=== PATIENT | female | born 1985 | race Caucasian/White ===

== ENCOUNTER 2016-08-29 14:43 | Emergency (ER) | payer MEDICAID, OTHER ==
[~2016-08-29] VITALS: Ht 149.9 cm; Wt 58.3 kg
[~2016-08-29 14:43] MED LIST: HYDR-3288 PO; IBUP800T23 PO; LEXA10TA PO
[2016-08-29 14:57] VITALS: BP 107/71; PULSE 69; RESP 15; TEMP 98.2; O2SAT 99
--- NOTE | 2016-08-29 15:20 | PD ---
Data Data Last Documented VS Vital Signs Date Time Temp Pulse Resp B/P Pulse Ox O2 Delivery O2 Flow Rate FiO2 08/29/16 14:57 98.2 69 15 107/71 99 Orders Ed Poc Ultrasound (08/29/16 ) MDM Supervised Visit with MARIANN: Yes Differential Diagnosis I, Dr. Quinonez, have reviewed the advance practice practioner's documentation and am in agreement, met with the patient face to face, made the diagnosis, and the medical decision making was done by me. *My assessment and Findings: 30-year-old female here with complaint of right breast pain increasing over the course the last several days. Patient's proximally 2 months status post discontinuing breast-feeding. She notes redness from the superior aspect of the nipple. Exam is consistent with mastitis and possible abscess with small area of fluctuance and induration. Ultrasound was used to evaluate for abscess, which did confirm this, please see procedure note. Area was incised and drained and patient will be discharged home with antibiotics. Procedures Procedure Narrative Patient consented to bedside ultrasound: Linear probe was used on the superior aspect of the breast at approximately 12: 00 above the nipple at the area of the most induration and fluctuance revealing abscess. Karen Quinonez MD Aug 29, 2016 15:20
[2016-08-29] MEDS ORDERED: LIDOCAINE 1%/EPINEPHrine 1:100,000 SOLN 20 ML VIAL INFIL ONE (15:30)
[2016-08-29] MEDS ORDERED: BACT800T5 PO (15:45)
[2016-08-29] MEDS ORDERED: IBUP800T23 PO (15:45)
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
== END 2016-08-29 16:21 | disposition home or self-care (01) ==
LOC: PHEFT 14:43
DX: N61.1 Abscess of the breast and nipple (principal); B95.62 Methicillin resistant Staphylococcus aureus infection as the cause of diseases classified elsewhere
CPT/HCPCS: 10061; 86403; 87070; 87186; 87205

== ENCOUNTER 2016-09-01 19:35 | Emergency (ER) | payer MEDICAID ==
[~2016-09-01] VITALS: Ht 149.9 cm; Wt 68.0 kg
[~2016-09-01 19:35] MED LIST changes: +BACT800T5 PO
[2016-09-01 20:53] VITALS: BP 136/88; PULSE 96; RESP 18; TEMP 99.2; O2SAT 99
== END 2016-09-01 22:23 | disposition left against medical advice (07) ==
LOC: PHED 19:35
DX: Z53.21 Procedure and treatment not carried out due to patient leaving prior to being seen by health care provider (principal)
CPT/HCPCS: 99281

== ENCOUNTER 2016-12-07 05:40 | Emergency (ER) | payer MEDICAID ==
[~2016-12-07] VITALS: Ht 157.5 cm; Wt 68.0 kg
[2016-12-07] VITALS (7 sets, daily range): BP systolic 100–111; BP diastolic 76; PULSE 144–165; RESP 32; TEMP 98.6; O2SAT 0–97
[2016-12-07] MEDS ORDERED: ETOMIDATE 20 MG/10 ML VIAL ONE (06:04)
[2016-12-07] MEDS ORDERED: SODIUM BICARBONATE 8.4% INJ 50 MEQ/50 ML SYR ONE (06:15)
[2016-12-07] MEDS ORDERED: SODIUM BICARBONATE 8.4% INJ 50 ML ONE ×2 (06:18→08:53)
[2016-12-07 06:45] LABS: BLOOD GAS HCO3 4 mmol/L (22-26); BLOOD GAS METHEMOGLOBIN 0.6 % (0-2); BLOOD GAS O2 HGB SATURATION 98 % (90-100); BLOOD GAS OXYGEN CONTENT 23.3 Vol % (12.0-20.0); BLOOD GAS PCO2 14 mmHg (38-42); BLOOD GAS PO2 208 mmHG (61-120); BLOOD GAS TOTAL HGB 16.8 G/DL (12.0-16.0); TEMP CORR TO 98.6
[2016-12-07 06:46] LABS: CRITICAL VALUE YES; DRAW SITE RT BRACHIAL; FIO2 100 %; LITER FLOW 15 L/M; NUMBER OF ARTERIAL PUNCTURES 1; OXYGEN DEVICE NRB; STAT YES
[2016-12-07 06:58] LABS: I-STAT POTASSIUM 2.6 MMOL/L (3.5-4.9)
[2016-12-07] MEDS ORDERED: POTASSIUM PHOSPHATE INJ 30 MMOL in SODIUM CHLOR 0.9% 250 ML INJ 250 ML IV PRN (07:00)
[2016-12-07] MEDS ORDERED: RESP: ALBUTEROL 2.5 MG/IPRATROPIUM 0.5 MG NEB (PRN) INH (07:00)
[2016-12-07] MEDS ORDERED: POTASSIUM CHLOR 40 MEQ PREMIX 100 ML IV PRN ×2 (07:00)
[2016-12-07] MEDS ORDERED: SODIUM PHOSPHATE INJ 30 MMOL in SODIUM CHLOR 0.9% 250 ML INJ 240 ML IV PRN (07:00)
[2016-12-07] MEDS ORDERED: MAGNESIUM OXIDE 400 MG TAB PO PRN (07:00)
[2016-12-07] MEDS ORDERED: POTASSIUM CHLOR 20 MEQ PREMIX 100 ML IV PRN ×2 (07:00)
[2016-12-07] MEDS ORDERED: POTASSIUM PHOSPHATE MONOBASIC 500 MG TAB PO/TUBE PRN (07:00)
[2016-12-07] MEDS ORDERED: MAGNESIUM SULFATE INJ 4 GM in SODIUM CHLORIDE 0.9% INJ 92 ML IV PRN (07:00)
[2016-12-07] MEDS ORDERED: MAGNESIUM SULFATE INJ 2 GM in SODIUM CHLORIDE 0.9% INJ 96 ML IV PRN (07:00)
[2016-12-07] MEDS ORDERED: POTASSIUM PHOSPHATE MONOBASIC 500 MG TAB PO PRN (07:00)
[2016-12-07 07:15] LABS: HEMATOCRIT 41.6 % (35.0-46.0); MEAN CELL VOLUME 92.2 FL (80.0-100.0); MEAN CORPUSCULAR HEMOGLOBIN 29.5 PG (27.0-34.0); PLATELET COUNT 108 TH/MM3 (150-450); RED BLOOD COUNT 4.51 MIL/MM3 (4.00-5.30); RED CELL DISTRIBUTION WIDTH 14.4 % (11.6-17.2); WHITE BLOOD COUNT 6.7 TH/MM3 (4.0-11.0)
[2016-12-07] MEDS ORDERED: PIPERACIL-TAZO 4.5 GM PREMIX 100 ML IV ONE (07:15)
[2016-12-07 07:18] LABS: HEMO FLAGS AUTO DIFF
[2016-12-07] MEDS ORDERED: MIDAZOLAM HCL 5 MG/ML VIAL (1 ML) ONE ×3 (07:25→10:00)
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
[2016-12-07] MEDS ORDERED: ROCURONIUM INJ 50 MG/5 ML VIAL ONE (07:26)
--- NOTE | 2016-12-07 07:31 | RADRPT ---
EXAM DATE/TIME: 12/07/2016 07:06 [place] COMPARISON: CHEST SINGLE AP, June 26, 2014, 12:24. INDICATIONS : ET tube placement, patient unresponsive. MEDICAL HISTORY : Unresponsive SURGICAL HISTORY : Unresponsive ENCOUNTER: Initial ACUITY: 1 day PAIN SCORE: Non-responsive. LOCATION: Bilateral chest FINDINGS: A single view of the chest demonstrates endotracheal tube tip about 1 cm above the josue. NG tube in the stomach head scattered subsegmental air space disease in both lungs. No effusion. No pneumothora x. Heart size upper limits normal. CONCLUSION: 1. Endotracheal tube tip about 1 cm above josue. NG tube in the stomach. Scattered subsegmental air space disease in both lungs. Remote right clavicle fracture. Brian Lara MD on December 07, 2016 at 7:28 Board Certified Radiologist. This report was verified electronically.
--- NOTE | 2016-12-07 07:31 | HHI.HP ---
HPI Service Critical Care Medicine Primary Care Physician No Primary Care Physician Admission Diagnosis Diagnosis: Chief Complaint: shortness of breath Travel History International Travel<30 Days: No Contact w/Intl Traveler <30 Da: No Traveled to Known Affected Are: No History of Present Illness This is a 31yF with a prior history of suicidal ideations and IVDA who presented with a few hour history of shortness of breath. She was initially unstable with a narrow complex tachycardia and was cardioverted by EMS. Upon arrival, she was mottled and in distress without iv access. in the ED, 2 IOs were started in the bilateral tibias and ivf resuscitation was started. She had an initial abg of 7.0/14/208 and was intubated for worsening respiratory failure and profound shock. Emergent right femoral triple lumen catheter was placed. I was called to the bedside by the ER physician for assistance in resuscitation. The patient was intubated when I arrived and additional history is unobtainable. I performed bedside critical care ultrasound which demonstrated very tachycardic, hyperdynamic biventricular function with a completely collapsed IVC, no wall motion abnormalities, and no pericardial effusion. Per the ED, there is no clinical history of fevers, chills. 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 per report, history of prior suicide attempts and IVDA. Past Surgical History unknown and unobtainable secondary to the clinical condition of the patient. Reported Medications unknown and unobtainable secondary to the clinical condition of the patient. per report, takes suboxone. Active Ordered Medications See MAR Family History unknown and unobtainable secondary to the clinical condition of the patient. Social History unknown and unobtainable secondary to the clinical condition of the patient. per report, h/o IVDA. Physical Exam Vital Signs Vital Signs Date Time Temp Pulse Resp B/P Pulse Ox O2 Delivery O2 Flow Rate FiO2 12/07/16 06:30 80 100 12/07/16 06:30 98.6 157 111/76 97 Ventilator 12/07/16 06:29 100 12/07/16 05:40 165 32 100/ 7/3/17 05:40 32 Room Air 12/07/16 05:40 165 32 Room Air Physical Exam gen: young female in severe distress. mottled. heent: perrl. mucous membranes dry neck: no jvd. trachea midline. intubated. chest: bilateral coarse rales. equal chest rise. cv: tachycardic rate, regular rhythm. appears sinus by tele. abd: soft, nontender, nondistended. no guarding. extr: bilateral IOs in place in tibias. mottled extremities. cool and clammy. poorly perfused. neuro: RASS -5. recently intubated. GCS 3. Laboratory Laboratory Tests Test 12/07/16 12/07/16 05:58 06:40 Blood Gas Puncture Site RT BRACHIAL Blood Gas Patient Temperature 98.6 Blood Gas HCO3 4 Blood Gas Base Excess -25.0 Blood Gas Oxygen Saturation 98 Arterial Blood pH 7.06 Arterial Blood Partial 14 Pressure CO2 Arterial Blood Partial 208 Pressure O2 Arterial Blood Oxygen Content 23.3 Arterial Blood 0.0 Carboxyhemoglobin Arterial Blood Methemoglobin 0.6 Blood Gas Hemoglobin 16.8 Oxygen Delivery Device NRB Blood Gas Liter Flow 15 Blood Gas Inspired Oxygen 100 Bedside Hemoglobin 12.9 Bedside Hematocrit 38.0 Bedside Sodium 150 Bedside Potassium 2.6 Bedside Chloride 109 Bedside Blood Urea Nitrogen 22 Bedside Creatinine 1.2 Bedside Glucose 70 Date/Time Procedure Status Source Growth 12/07/16 06:44 Aerobic Blood Culture Received Blood Peripheral Pending 12/07/16 06:44 Anaerobic Blood Culture Received Blood Peripheral Pending Assessment and Plan Assessment and Plan Assessment: 31 year old female in profound shock and metabolic acidosis from an unknown cause. Clinically appears more septic. PE less likely given normal right ventricular size and function on bedside echo. unknown source of sepsis, but pulmonary would be a possible culprit given history of shortness of breath. will ivf resuscitate, start broad spectrum abx, await lab results. also drug overdose or toxic ingestion is a possibility given her past history. Active Problems: Acute encephalopathy, unknown type, toxic vs. metabolic Acute hypoxic and hypercarbic respiratory failure Severe metabolic acidosis Acute Kidney Injury Profound Shock, unknown type, likely distributive Plan: -- ct head, frequent neuro exam, propofol prn for sedation. -- ct chest/abd/pelvis to r/o PE and look for source of shock -- cbc, cmp, lactate, lipase -- tylenol and ASA levels, UDS, serum osms to calculate osmolar gap -- will need art line and sterile central line (femoral line placed unsterilely in emergent situation) -- 2L LR bolus -- vent bundle, hob at 30 degrees, nebs, wean fio2 for spo2 > 90%, no sbt today. -- may require vasopressors. -- longoria and q1h uop -- serial abg, lactate critical care time: 80 minutes, exclusive of separately billable procedures. I remained with the patient for ongoing resuscitation from the ER through CT scanner and to the ICU. Patient in extremis. Code Status Full Code Antonio Hernandez MD Dec 07, 2016 07:31
[2016-12-07 07:38] LABS: ACETAMINOPHEN 93.2 MCG/ML (10.0-30.0); ALKALINE PHOSPHATASE 229 U/L (45-117); ALT (GPT) 1610 U/L (10-53); ANION GAP 28 MEQ/L (5-15); AST (GOT) 339 U/L (15-37); BICARBONATE 10.1 MEQ/L (21.0-32.0); BLOOD UREA NITROGEN 25 MG/DL (7-18); CHLORIDE 113 MEQ/L (98-107); CREATINE KINASE 1582 U/L (26-192); GLOMERULAR FILTRATION RATE 39 ML/MIN (>89); MAGNESIUM 2.4 MG/DL (1.5-2.5); SODIUM (NA) 151 MEQ/L (136-145); TOTAL BILIRUBIN ADULT 3.8 MG/DL (0.2-1.0)
[2016-12-07 07:43] LABS: BANDS 12 % (0-6); CORRECTED NUCLEATED RBC 3 /100 WBC (0-0); NEUTROPHIL # MANUAL DIFF 5.4 TH/MM3 (1.8-7.7); POLYS (SEG NEUTROPHILS) 68 % (16-70); WBC DIFF SAMPLE 100
[2016-12-07 07:44] LABS: BURR CELLS 1+ (NORMAL); PLATELET ESTIMATE SMEAR LOW (NORMAL); PLATELET MORPHOLOGY NORMAL (NORMAL)
[2016-12-07 07:45] LABS: SCAN/DIFF FINAL DIFF MANUAL
[2016-12-07 07:48] LABS: BACTERIA, URINE RARE /hpf; BLOOD, URINE LARGE (NEG); COMMENT (UR) CULT NOT INDICATED; CULTURE IF INDICATED CULT NOT INDICATED; GLUCOSE,URINE NEG (NEG); HYALINE CAST, URINE 84 /lpf (RARE); KETONE, URINE TRACE mg/dL (NEG); MUCUS URINE FEW /lpf (OCC); NITRITE,URINE NEG (NEG); PH, URINE 5.5 (5.0-8.5); SQUAMOUS EPITHELIAL CELL URINE 3 /hpf (0-5)
[2016-12-07] MEDS ORDERED: IOHEXOL 350 MG/ML 10 ML VIAL (for RAD DIAG) IV ONE (07:48)
[2016-12-07 07:50] LABS: URINE COLOR RED (YELLW/STRAW)
[2016-12-07 07:55] LABS: AMPHETAMINE, URINE NEG (NEG); BARBITURATES, URINE NEG (NEG); COCAINE, URINE NEG (NEG)
--- NOTE | 2016-12-07 07:56 | RADRPT ---
EXAM DATE/TIME: 12/07/2016 07:38 [facility] COMPARISON: No previous studies available for comparison. INDICATIONS : Altered mental status. RADIATION DOSE: 56.35 CTDIvol (mGy) MEDICAL HISTORY : Hepatitis C. SURGICAL HISTORY : None. ENCOUNTER: Initial ACUITY: 1 day PAIN SCALE: Non-responsive LOCATION: cranial TECHNIQUE: Multiple contiguous axial images were obtained of the head. Using automated exposure control and adj ustment of the mA and/or kV according to patient size, radiation dose was kept as low as reasonably a chievable to obtain optimal diagnostic quality images. DICOM format image data is available electro nically for review and comparison. FINDINGS: CEREBRUM: The ventricles are normal for age. No evidence of midline shift, mass lesion, hemorrhage or acute in farction. No extra-axial fluid collections are seen. POSTERIOR FOSSA: The cerebellum and brainstem are intact. The 4th ventricle is midline. The cerebellopontine angle i s unremarkable. EXTRACRANIAL: The visualized portion of the orbits is intact. SKULL: The calvaria is intact. No evidence of skull fracture. CONCLUSION: Normal examination for a patient of this age. No significant change has occurred. Brian Lara MD on December 07, 2016 at 7:47 Board Certified Radiologist. This report was verified electronically.
[2016-12-07 07:57] LABS: CKMB 28.5 NG/ML (0.5-3.6)
[2016-12-07] MEDS ORDERED: DEXTROSE 5% IV ONE ×6 (08:00→13:00)
[2016-12-07] MEDS ORDERED: CHLORHEXIDINE 0.12% (ORAL KIT) 15 ML CUP MT SCH ×2 (08:00→20:00)
[2016-12-07] MEDS ORDERED: WATER IV ONE ×2 (08:00)
[2016-12-07] MEDS ORDERED: ACETYLCYSTEINE IV ONE ×6 (08:00→13:00)
--- NOTE | 2016-12-07 08:14 | RADRPT ---
EXAM DATE/TIME: 12/07/2016 07:44 [facility] COMPARISON: No previous studies available for comparison. INDICATIONS : Chest pain, shortness of breath. IV CONTRAST: 100 cc Omnipaque 350 (iohexol) IV ; Cumulative dose for multiple exams. RADIATION DOSE: 13.85 CTDIvol (mGy) MEDICAL HISTORY : Hepatitis C. SURGICAL HISTORY : Inguinal hernia repair. section.Tubal ligation. ENCOUNTER: Initial ACUITY: 1 day PAIN SCALE: Non-responsive LOCATION: Bilateral chest TECHNIQUE: Volumetric scanning of the chest was performed using a pulmonary embolism protocol MIP images were reconstructed. Using automated exposure control and adjustment of the mA and/or kV acco rding to patient size, radiation dose was kept as low as reasonably achievable to obtain optimal diag nostic quality images. DICOM format image data is available electronically for review and compariso n. FINDINGS: Patchy airspace disease is present in both lungs consistent with an inflammatory process. There is n o adenopathy. There are no central pulmonary emboli. There is no significant pleural effusion. The re is no pneumothorax. Contrasted injected Thre femoral central line. CONCLUSION: Negative for central pulmonary emboli Significant patchy airspace disease. Gatito Tsai MD FACR on December 07, 2016 at 8:08 Board Certified Radiologist. This report was verified electronically.
[2016-12-07 08:16] LABS: APTT (PATIENT) 106.6 SEC (24.3-30.1)
[2016-12-07 08:17] LABS: INTERNATIONAL NORMALIZED RATIO 6.2 RATIO
--- NOTE | 2016-12-07 08:18 | RADRPT ---
EXAM DATE/TIME: 12/07/2016 07:44 [facility] COMPARISON: No previous studies available for comparison. INDICATIONS : Shortness of breath, abdominal pain. IV CONTRAST: 100 cc Omnipaque 350 (iohexol) IV ; Cumulative dose for multiple exams. ORAL CONTRAST: No oral contrast ingested. RADIATION DOSE: 17.68 CTDIvol (mGy) MEDICAL HISTORY : Hepatitis C. SURGICAL HISTORY : Tubal ligation. Inguinal hernia repair. section. ENCOUNTER: Initial ACUITY: 1 day PAIN SCALE: Non-responsive LOCATION: Bilateral upper quadrant TECHNIQUE: Volumetric scanning of the abdomen and pelvis was performed. Using automated exposure control and ad justment of the mA and/or kV according to patient size, radiation dose was kept as low as reasonably achievable to obtain optimal diagnostic quality images. DICOM format image data is available electro nically for review and comparison. FINDINGS: Patchy airspace disease is seen in both lung spaces. The liver spleen pancreas unremarkable. The small amount of pericholecystic fluid present. There is minimal bowel wall thickening in both large and small bowel more so in the small bowel. Trace ascit es is evident. Femoral line is present. Degenerative changes are present in the lumbar spine. CONCLUSION: Patchy airspace disease in both lungs, most likely source of sepsis Gallbladder is abnormal with pericholecystic fluid without gallstones There is bowel wall thickening in large and small bowel. This can be seen with resuscitation. Gatito Tsai MD FACR on December 07, 2016 at 8:12 Board Certified Radiologist. This report was verified electronically.
[2016-12-07 08:19] LABS: POTASSIUM 2.7 MEQ/L (3.5-5.1)
[2016-12-07] MEDS ORDERED: Vancomycin Consult Pharmacy 1 EA OTHER SCH (08:30)
[2016-12-07] MEDS ORDERED: NOREPINEPHRINE-DEXTROSE DRIP 250 ML IV ONE (08:32)
[2016-12-07] MEDS ORDERED: WATE IV ONE ×4 (09:00→13:00)
[2016-12-07] MEDS ORDERED: SODIUM BICARBONATE 8.4% INJ 150 MEQ in WATER STERILE FOR INJ 850 ML IV SCH (09:00)
[2016-12-07] MEDS ORDERED: PANTOPRAZOLE SODIUM 40 MG VIAL IV PUSH SCH (09:00)
[2016-12-07 09:08] LABS: LACTIC ACID GHOST NOT REPORTABLE
[2016-12-07] MEDS: DEXTROSE 10% INJ 1,000 ML IV SCH ×2 (09:09→10:06)
[2016-12-07] MEDS ORDERED: VANCOMYCIN INJ 1,250 MG in SODIUM CHLOR 0.9% 250 ML INJ 250 ML IV ONE (10:00)
[2016-12-07] MEDS ORDERED: RESP: ALBUTEROL 2.5 MG/IPRATROPIUM 0.5 MG NEB (SCH) INH (10:00)
[2016-12-07] MEDS ORDERED: AZITHROMYCIN INJ 500 MG in SODIUM CHLOR 0.9% 250 ML INJ 250 ML IV SCH (10:00)
[2016-12-07 10:47] LABS: BLOOD GAS VENOUS BASE EXCESS -17.4 mmol/L (-2-2); BLOOD GAS VENOUS HCO3 11 mmol/L (22-26); BLOOD GAS VENOUS O2 CONTENT 9.5 Vol % (9.0-17.0); BLOOD GAS VENOUS O2 HGB SAT 64 % (70-76); BLOOD GAS VENOUS PCO2 47 mmHg (44-48); BLOOD GAS VENOUS PO2 52 mmHg (35-40); BLOOD GAS VENOUS pH 7.02 (7.360-7.400); TEMP CORR TO 98.6
[2016-12-07 10:48] LABS: CRITICAL VALUE YES; OXYGEN DEVICE VENTILATOR
[2016-12-07 10:49] LABS: DRAW SITE CENTRAL LINE; FIO2 100 %; STAT YES; VENT SETTINGS PRVC24/350/.8/+10
--- NOTE | 2016-12-07 10:56 | HHI.CCPN ---
Subjective Remarks/Hospital Course This is a 31yF with a prior history of suicidal ideations and IVDA who presented with a few hour history of shortness of breath. She was initially unstable with a narrow complex tachycardia and was cardioverted by EMS. Upon arrival, she was mottled and in distress without iv access. in the ED, 2 IOs were started in the bilateral tibias and ivf resuscitation was started. She had an initial abg of 7.0/14/208 and was intubated for worsening respiratory failure and profound shock. Emergent right femoral triple lumen catheter was placed. I was called to the bedside by the ER physician for assistance in resuscitation. The patient was intubated when I arrived and additional history is unobtainable. I performed bedside critical care ultrasound which demonstrated very tachycardic, hyperdynamic biventricular function with a completely collapsed IVC, no wall motion abnormalities, and no pericardial effusion. Per the ED, there is no clinical history of fevers, chills. 12/07 1030 hours: Further labs reveal tylenol toxicity, raising possibility of suicide attempt. NAC started for 3-part infusion. Ongoing resuscitation with bicarb 3 amps ivp followed by infusion at 150/hr. Vancomycin added to coverage. FFP 6 units infused to correct coagulopathy. Peripheral perfusion is inadequate still, legs and arms are cold and mottled despite aggressive correction of acid/ base balance, hyperventilation, and fluid resuscitation. At this point we are having difficulty blowing off CO2 while trying to correct base deficit with bicarb. ANDREE is not available but would solve a deficit of this magnitude. She continues to deteriorate and remains critically ill. Objective Vital Signs Date Time Temp Pulse Resp B/P Pulse Ox O2 Delivery O2 Flow Rate FiO2 12/07/16 09:04 0 100 12/07/16 06:30 98.6 157 111/76 Ventilator 12/07/16 05:40 32 Result Diagram: 12/07/16 0644 12/07/16 0640 Other Results Laboratory Tests Test 12/07/16 05:58 Blood Gas Puncture Site RT BRACHIAL Blood Gas Patient Temperature 98.6 Blood Gas HCO3 4 mmol/L (22-26) Blood Gas Base Excess -25.0 mmol/L (-2-2) Blood Gas Oxygen Saturation 98 % (90-100) Arterial Blood pH 7.06 (7.380-7.420) Arterial Blood Partial 14 mmHg (38-42) Pressure CO2 Arterial Blood Partial 208 mmHG Pressure O2 (61-120) Arterial Blood Oxygen Content 23.3 Vol % (12.0-20.0) Arterial Blood 0.0 % (0-4) Carboxyhemoglobin Arterial Blood Methemoglobin 0.6 % (0-2) Blood Gas Hemoglobin 16.8 G/DL (12.0-16.0) Oxygen Delivery Device NRB Blood Gas Liter Flow 15 L/M Blood Gas Inspired Oxygen 100 % Objective Remarks gen: young female in severe shock, intubated, ventilated. mottled. heent: perrl. mucous membranes dry neck: neck veins now full. trachea midline. orally intubated. chest: bilateral coarse crackles, equal chest rise. cv: tachycardic rate, regular rhythm. appears sinus by tele. abd: soft, nontender,moderately distended. voluntary guarding extr: bilateral IOs in place in tibias. cold, mottled extremities. remain cool and clammy. poorly perfused. neuro: RASS -4. intubated. GCS 5T. A/P Assessment and Plan Assessment: 31 year old female in profound shock and metabolic acidosis from an unknown cause. Clinically appears more septic. PE less likely given normal right ventricular size and function on bedside echo. unknown source of sepsis, but pulmonary would be a possible culprit given history of shortness of breath. will ivf resuscitate, start broad spectrum abx, await lab results. also drug overdose or toxic ingestion is a possibility given her past history. Active Problems: Acute encephalopathy, unknown type, toxic vs. metabolic Acute hypoxic and hypercarbic respiratory failure Severe metabolic acidosis Acute Kidney Injury Profound Shock, unknown type, likely distributive Bilateral pneumonia. Tylenol Toxicity Plan: -- ct head, frequent neuro exam, propofol prn for sedation for vent synchrony -- ct chest/abd/pelvis to r/o PE and look for source of shock -- cbc, cmp, lactate, lipase -- tylenol and ASA levels, UDS, serum osms to calculate osmolar gap -- placed new sterile central line. -- bicarb gtt -- vent bundle, hob at 30 degrees, nebs, wean fio2 for spo2 > 90%, no sbt today. -- may require vasopressors. -- longoria and q1h uop -- serial abg, lactate -- FFP X 6. -- Add vanc and micafungin -- NAC infusion, 3 parts. --Serial INR, LFTs. Overall impression: Patient remains critically ill in what appears to be refractory septic shock. Peripheral perfusion is not adequate for survival at this point despite constant bedside attention and continuous adjustemnts to ventilator, inotropes, vasopressors, and antibiotics. Hepatic failure is pronounced. She is not a candidate for liver transplant. Critical Care time: 65 minutes, exclusive of separately billable procedures. Cliff Lieberman MD Dec 07, 2016 10:56
[2016-12-07] MEDS ORDERED: PROPOFOL 1000 MG/100 ML INJ 100 ML IV SCH (11:00)
[2016-12-07] MEDS ORDERED: DEXTROSE 50% IN WATER 50 ML SYRINGE IV PUSH PRN (11:00)
[2016-12-07] MEDS ORDERED: fentaNYL DRIP 250 ML IV SCH (11:00)
--- NOTE | 2016-12-07 11:01 | PD.PROCEDR ---
Procedure Note Procedure DX: Septic Shock (A41.9) OP: Insertion Left Subclavian Central Line ([id number]) Procedure: Left chest prepped and draped. Left subclavian vein cannulated and wire easily advanced. Catheter passed over wire to 17 cm. Lumens aspirated and flushed. Dressing applied. CXR ordered, will review. Cliff Lieberman MD Dec 07, 2016 11:01
[2016-12-07 11:40] LABS: ACETAMINOPHEN 69.3 MCG/ML (10.0-30.0); BICARBONATE 13.6 MEQ/L (21.0-32.0); INDIRECT BILIRUBIN 0.5 MG/DL (0.0-0.8); TOTAL BILIRUBIN ADULT 2.8 MG/DL (0.2-1.0)
[2016-12-07 11:50] LABS: CALCIUM-PROTEIN CORRECTED 8.7 MG/DL (8.5-10.1)
[2016-12-07] MEDS ORDERED: INSULIN NovoLIN REGULAR SUPPLEMENTAL SCALE SQ SCH (12:00)
[2016-12-07 13:17] LABS: INTERNATIONAL NORMALIZED RATIO 2.1 RATIO; PROTHROMBIN TIME - PATIENT 24.1 SEC (9.8-11.6)
[2016-12-07 13:20] LABS: TOTAL BILIRUBIN ADULT 2.5 MG/DL (0.2-1.0)
[2016-12-07 13:22] LABS: INDIRECT BILIRUBIN 0.6 MG/DL (0.0-0.8)
[2016-12-07 13:43] LABS: APTT (PATIENT) 149.4 SEC (24.3-30.1)
--- NOTE | 2016-12-07 13:56 | DEATH SUM ---
Summary Demographics Date Pronounced : Dec 07, 2016 Time Of : 13:51 Preliminary Cause of : Multi Organ Failure Cliff Lieberman MD Dec 07, 2016 13:56
[2016-12-07] MEDS ORDERED: PIPERACIL-TAZO 4.5 GM PREMIX 100 ML IV SCH (14:00)
--- NOTE | 2016-12-07 14:21 | HHI.DS ---
Discharge Summary Admission Date Dec 07, 2016 at 06:56 Discharge Date: Dec 07, 2016 Admitting Diagnosis 1. Septic Shock. 2. Fulminant Hepatic Failure. 3. Metabolic Acidosis. 4. Respiratory Failure, Combined Hypercapneic and Hypoxemic. 5. BLANQUITA. 6. Encephalopathy. 7. Acetaminophen toxicity. Procedures Intubation. Mechanical Ventilation. Insertion Central venous line X 2. Brief History This is a 31yF with a prior history of suicidal ideations and IVDA who presented with a few hour history of shortness of breath. She was initially unstable with a narrow complex tachycardia and was cardioverted by EMS. Upon arrival, she was mottled and in distress without iv access. in the ED, 2 IOs were started in the bilateral tibias and ivf resuscitation was started. She had an initial abg of 7.0/ and was intubated for worsening respiratory failure and profound shock. Emergent right femoral triple lumen catheter was placed. I was called to the bedside by the ER physician for assistance in resuscitation. The patient was intubated when I arrived and additional history is unobtainable. I performed bedside critical care ultrasound which demonstrated very tachycardic, hyperdynamic biventricular function with a completely collapsed IVC, no wall motion abnormalities, and no pericardial effusion. Per the ED, there is no clinical history of fevers, chills. CBC/BMP: 12/07/16 0644 12/07/16 1045 Significant Findings Laboratory Tests Test 12/07/16 12/07/16 12/07/16 12/07/16 05:58 06:40 06:44 07:30 Blood Gas HCO3 4 mmol/L (22-26) Blood Gas Base Excess -25.0 mmol/L (-2-2) Arterial Blood pH 7.06 (7.380-7.420) Arterial Blood Partial 14 mmHg (38-42) Pressure CO2 Arterial Blood Partial 208 mmHG Pressure O2 (61-120) Arterial Blood Oxygen Content 23.3 Vol % (12.0-20.0) Blood Gas Hemoglobin 16.8 G/DL (12.0-16.0) Bedside Sodium 150 MMOL/L (138-146) Sodium Level 151 MEQ/L (136-145) Bedside Potassium 2.6 MMOL/L (3.5-4.9) Potassium Level 2.7 MEQ/L (3.5-5.1) Chloride Level 113 MEQ/L (98-107) Carbon Dioxide Level 10.1 MEQ/L (21.0-32.0) Anion Gap 28 MEQ/L (5-15) Blood Urea Nitrogen 25 MG/DL (7-18) Creatinine 1.57 MG/DL (0.50-1.00) Bedside Creatinine 1.2 MG/DL (0.6-1.0) Estimat Glomerular Filtration 39 ML/MIN (>89) Rate Random Glucose 70 MG/DL (74-106) Calcium Level 7.5 MG/DL (8.5-10.1) Total Bilirubin 3.8 MG/DL (0.2-1.0) Aspartate Amino Transf 339 U/L (15-37) (AST/SGOT) Alanine Aminotransferase 1610 U/L (ALT/SGPT) (10-53) Alkaline Phosphatase 229 U/L (45-117) Total Creatine Kinase 1582 U/L (26-192) Creatine Kinase MB 28.5 NG/ML (0.5-3.6) Troponin I 0.06 NG/ML (0.02-0.05) C-Reactive Protein 11.00 MG/DL (0.00-0.30) Total Protein 3.9 GM/DL (6.4-8.2) Albumin 1.5 GM/DL (3.4-5.0) Lipase 72 U/L (73-393) Thyroid Stimulating Hormone 0.096 uIU/ML 3rd Gen (0.358-3.740) Acetaminophen Level 93.2 MCG/ML (10.0-30.0) Platelet Count 108 TH/MM3 (150-450) Band Neutrophils % 12 % (0-6) Nucleated Red Blood Cells 3 /100 WBC (0-0) Platelet Estimate LOW (NORMAL) [place] Cells 1+ (NORMAL) Urine Color RED (YELLW/STRAW) Urine Turbidity HAZY (CLEAR) Urine Protein 100 mg/dL (NEG-TRACE) Urine Ketones TRACE mg/dL (NEG) Urine Occult Blood LARGE (NEG) Urine Bilirubin SMALL (NEG) Urine RBC 13 /hpf (0-3) Urine Bacteria RARE /hpf (NONE) Urine Mucus FEW /lpf (OCC) Lactic Acid Level 19.4 mmol/L (0.4-2.0) B-Type Natriuretic Peptide 190 PG/ML (0-100) Salicylates Level LESS THAN 1.7 MG/DL (2.8-20.0) Prothrombin Time 74.0 SEC (9.8-11.6) Prothromb Time International 6.2 RATIO Ratio Activated Partial 106.6 SEC Thromboplast Time (24.3-30.1) Test 12/07/16 12/07/16 12/07/16 10:27 10:45 12:55 Venous Blood pH 7.02 (7.360-7.400) Venous Blood Partial Pressure 52 mmHg (35-40) O2 Venous Blood HCO3 11 mmol/L (22-26) Venous Blood Oxygen Saturation 64 % (70-76) Venous Blood Base Excess -17.4 mmol/L (-2-2) Sodium Level 153 MEQ/L (136-145) Potassium Level 6.0 MEQ/L (3.5-5.1) Carbon Dioxide Level 13.6 MEQ/L (21.0-32.0) Anion Gap 33 MEQ/L (5-15) Blood Urea Nitrogen 21 MG/DL (7-18) Creatinine 1.39 MG/DL (0.50-1.00) Estimat Glomerular Filtration 45 ML/MIN (>89) Rate Random Glucose 19 MG/DL (74-106) Serum Osmolality 331 MOSM/KG (275-295) Lactic Acid Level 24.6 mmol/L 29.3 mmol/L (0.4-2.0) (0.4-2.0) Calcium Level 6.6 MG/DL (8.5-10.1) Total Bilirubin 2.8 MG/DL 2.5 MG/DL (0.2-1.0) (0.2-1.0) Direct Bilirubin 2.3 MG/DL 1.9 MG/DL (0.0-0.2) (0.0-0.2) Aspartate Amino Transf 508 U/L (15-37) 743 U/L (15-37) (AST/SGOT) Alanine Aminotransferase 1076 U/L 906 U/L (10-53) (ALT/SGPT) (10-53) Alkaline Phosphatase 133 U/L 146 U/L (45-117) (45-117) Total Protein 3.3 GM/DL 3.8 GM/DL (6.4-8.2) (6.4-8.2) Albumin 1.3 GM/DL 1.6 GM/DL (3.4-5.0) (3.4-5.0) Salicylates Level LESS THAN 1.7 MG/DL (2.8-20.0) Acetaminophen Level 69.3 MCG/ML 67.0 MCG/ML (10.0-30.0) (10.0-30.0) Prothrombin Time 24.1 SEC (9.8-11.6) Activated Partial 149.4 SEC Thromboplast Time (24.3-30.1) Imaging CT chest: Diffuse bilateral pneumonia PE at Discharge . Transfer Summary Continuing deterioration after admission, becoming unresponsive to our best efforts at reversal. Mother made patient DNR status in my talk with her while driving back from [facility]. She at 1351 hours from multisystem organ failure. Sister notified at bedside. Hospital Course This is a 31yF with a prior history of suicidal ideations and IVDA who presented with a few hour history of shortness of breath. She was initially unstable with a narrow complex tachycardia and was cardioverted by EMS. Upon arrival, she was mottled and in distress without iv access. in the ED, 2 IOs were started in the bilateral tibias and ivf resuscitation was started. She had an initial abg of 7.0//208 and was intubated for worsening respiratory failure and profound shock. Emergent right femoral triple lumen catheter was placed. I was called to the bedside by the ER physician for assistance in resuscitation. The patient was intubated when I arrived and additional history is unobtainable. I performed bedside critical care ultrasound which demonstrated very tachycardic, hyperdynamic biventricular function with a completely collapsed IVC, no wall motion abnormalities, and no pericardial effusion. Per the ED, there is no clinical history of fevers, chills. 12/07 1030 hours: Further labs reveal tylenol toxicity, raising possibility of suicide attempt. NAC started for 3-part infusion. Ongoing resuscitation with bicarb 3 amps ivp followed by infusion at 150/hr. Vancomycin added to coverage. FFP 6 units infused to correct coagulopathy. Peripheral perfusion is inadequate still, legs and arms are cold and mottled despite aggressive correction of acid/ base balance, hyperventilation, and fluid resuscitation. At this point we are having difficulty blowing off CO2 while trying to correct base deficit with bicarb. ANDREE is not available but would solve a deficit of this magnitude. She continues to deteriorate and remains critically ill. Pt Condition on Discharge: Deteriorating Cliff Lieberman MD Dec 07, 2016 14:21
--- NOTE | 2016-12-07 14:31 | EKG ---
Date Performed: 12/07/2016 Time Performed: 05:46:28 PTAGE: 31 years EKG: Supraventricular tachycardia BORDERLINE RIGHT AXIS DEVIATION NONSPECIFIC T-WAVE ABNORMALITY ABNORMAL RHYTHM ECG PREVIOUS TRACING : 06/26/2014 11.16 Supraventricular tachycardia is new since prior tracing DOCTOR: Javan Bustillo Interpretating Date/Time 12/07/2016 14:28:55
[2016-12-07 14:59] LABS: LACTIC ACID GHOST NOT REPORTABLE
[2016-12-08] MEDS ORDERED: VANCOMYCIN INJ 1,250 MG in SODIUM CHLOR 0.9% 250 ML INJ 250 ML IV SCH (10:00)
[2016-12-10] MEDS ORDERED: PHARMACY ORDERED LAB ONE (09:45)
== END 2016-12-07 13:51 | disposition expired ==
LOC: NEPC 05:40 → N03A 06:56 → UNDOADMIN 06:56 → UNDODISIN 13:51 → NEPC 13:51
DX: A41.9 Sepsis, unspecified organism (principal); R65.20 Severe sepsis without septic shock; K72.91 Hepatic failure, unspecified with coma; E87.2 Acidosis; J96.01 Acute respiratory failure with hypoxia; J96.02 Acute respiratory failure with hypercapnia; N17.9 Acute kidney failure, unspecified; G93.40 Encephalopathy, unspecified; T39.1X5A Adverse effect of 4-Aminophenol derivatives, initial encounter; I47.1 Supraventricular tachycardia; J18.9 Pneumonia, unspecified organism; R94.31 Abnormal electrocardiogram [ECG] [EKG]; F17.200 Nicotine dependence, unspecified, uncomplicated; Z86.59 Personal history of other mental and behavioral disorders; Z86.19 Personal history of other infectious and parasitic diseases; Z87.39 Personal history of other diseases of the musculoskeletal system and connective tissue
CPT/HCPCS: 31500; 36430; 36556; 36600; 51702; 70450; 71010; 71275; 74177; 80048; 80076; 80307; 81001; 82010; 82435; 82550; 82552; 82565; 82805; 82947; 82948; 83605; 83690; 83735; 83880; 83930; 83935; 84132; 84155; 84295; 84443; 84484; 84520; 85007; 85027; 85610; 85652; 85730; 86140; 86403; 86927; 87040; 87205; 93005; 94002; 99291; J0132; J0456; J2250; J2543; J3370; J7050; J7060; P9017; Q9967; 80053